=== PATIENT | male | born 1995 | race Caucasian/White ===

== ENCOUNTER 2018-04-05 22:25 | Emergency (ER) | payer MEDICAID ==
[~2018-04-05] VITALS: Ht 180.3 cm; Wt 94.8 kg
[2018-04-05 22:34] VITALS: BP_SYST 160
[2018-04-05] MEDS ORDERED: ONDANSETRON HCL 4 MG/2 ML VIAL IVP ONE (22:45)
[2018-04-05] MEDS ORDERED: NACL 0.9% 1,000 ML IV ONE (22:45)
[2018-04-05] MEDS ORDERED: KETOROLAC TROMETHAMINE 30 MG VIAL IVP ONE (22:45)
[2018-04-05 22:46] LABS: BILIRUBIN,URINE 2+ (NEGATIVE); BLOOD, URINE 1+ (NEGATIVE); COLOR,URINE YELLOW (YELLOW); GLUCOSE,URINE NEGATIVE (NEGATIVE); KETONES,URINE 3+ (NEGATIVE); LEUKOCYTE ESTERASE ,URINE NEGATIVE (NEGATIVE); NITRITE, URINE NEGATIVE (NEGATIVE); PH,URINE 5.5 (5.0-8.0); PROTEIN URINE 1+ (NEGATIVE)
[2018-04-05 22:47] LABS: CLARITY/URINE SLIGHTLY HAZY (CLEAR)
[2018-04-05 23:14] LABS: BACTERIA,URINE FEW /HPF (None Seen); HYALINE CASTS, URINE 0-10 /LPF (None Seen); WBC,URINE 0-3 /HPF (0-3)
[2018-04-05 23:21] LABS: BASOPHILS # (AUTO) 0.3 K/uL (0.0-0.2); BASOPHILS % (AUTO) 1.8 % (0.0-2.0); EOSINOPHILS # (AUTO) 0.1 K/uL (0.0-0.4); EOSINOPHILS % (AUTO) 0.3 % (0.0-4.0); HEMATOCRIT 50.6 % (36-54); HEMOGLOBIN 17.7 g/dL (14.0-18.0); LYMPHOCYTES # (AUTO) 0.7 K/uL (1.0-5.5); LYMPHOCYTES % (AUTO) 4.3 % (20.5-51.5); MEAN CORPUSCULAR HEMOGLOBIN 30 pg (27-31); MEAN CORPUSCULAR HGB CONC 35 % (32-36); MEAN CORPUSCULAR VOLUME 85 fL (79.0-98.0); MONOCYTES # (AUTO) 0.5 K/uL (0.0-1.0); NEUTROPHILS # (AUTO) 15.2 K/uL (1.8-7.7); NEUTROPHILS % (AUTO) 90.6 % (40.0-70.0); PLATELET COUNT (AUTO) 222 K/uL (130-430); RED BLOOD CELL COUNT(AUTO) 5.93 MIL/uL (4.2-6.2); WHITE BLOOD COUNT (AUTO) 16.8 K/uL (4.8-10.8)
[2018-04-05 23:26] LABS: CALCIUM 9.7 mg/dL (8.4-11.0); CREATININE 0.87 mg/dL (0.55-1.30); POTASSIUM 3.7 mmol/L (3.5-5.1)
[2018-04-05 23:30] LABS: ALBUMIN 4.4 g/dL (3.4-4.8); TOTAL BILIRUBIN 0.9 mg/dL (0.0-1.0)
[2018-04-06] MEDS ORDERED: PANTOPRAZOLE SODIUM 40 MG/VIAL (PROTONIX) IVP ONE
[2018-04-06 00:30] VITALS: BP_SYST 133
== END 2018-04-06 00:30 | disposition home or self-care (01) ==
LOC: SED 22:25
DX: K52.9 Noninfective gastroenteritis and colitis, unspecified (principal); R03.0 Elevated blood-pressure reading, without diagnosis of hypertension; Z87.19 Personal history of other diseases of the digestive system
CPT/HCPCS: 36415; 74176; 80053; 81000; 83690; 85025; 96361; 96374; 96375; 99284; C9113; J1885; J2405; J7030; 99283

== ENCOUNTER 2018-07-28 20:51 | Emergency (ER) | payer SELFPAY ==
[~2018-07-28] VITALS: Ht 180.3 cm; Wt 99.8 kg
[2018-07-28 20:57] VITALS: BP_SYST 134
[2018-07-28 23:15] VITALS: BP_SYST 130
== END 2018-07-28 23:15 | disposition home or self-care (01) ==
LOC: SED 20:51
DX: J02.8 Acute pharyngitis due to other specified organisms (principal); B97.89 Other viral agents as the cause of diseases classified elsewhere
CPT/HCPCS: 71045; 99283

== ENCOUNTER 2018-08-14 22:14 | Emergency (ER) | payer SELFPAY ==
[~2018-08-14] VITALS: Ht 180.3 cm; Wt 95.3 kg
[2018-08-14 22:54] VITALS: BP_SYST 150
[2018-08-15] MEDS ORDERED: IBUPROFEN 400 MG TABLET PO ONE
[2018-08-15 00:47] VITALS: BP_SYST 150
== END 2018-08-15 00:47 | disposition home or self-care (01) ==
LOC: SED 22:14
DX: K08.89 Other specified disorders of teeth and supporting structures (principal); R03.0 Elevated blood-pressure reading, without diagnosis of hypertension
CPT/HCPCS: 99282

== ENCOUNTER 2020-08-17 17:35 | Emergency (ER) | payer MEDICAID ==
[~2020-08-17] VITALS: Ht 177.8 cm; Wt 102.5 kg
[2020-08-17 17:42] VITALS: BP_SYST 135
[2020-08-17] MEDS ORDERED: P-EPHED SUL/LORATADINE TAB.SR.12H PO ONE ×2 (18:00→18:03)
[2020-08-17] MEDS ORDERED: ASPIRIN 81 MG TAB.CHEW PO ONE (18:00)
[2020-08-17 18:31] LABS: BASOPHILS % (AUTO) 0.3 % (0.0-2.0); EOSINOPHILS # (AUTO) 0.2 K/uL (0.0-0.4); EOSINOPHILS % (AUTO) 2.2 % (0.0-4.0); HEMATOCRIT 45.7 % (36-54); HEMOGLOBIN 15.8 g/dL (14.0-18.0); LYMPHOCYTES # (AUTO) 2.5 K/uL (1.0-5.5); MEAN CORPUSCULAR HEMOGLOBIN 30 pg (27-31); MEAN CORPUSCULAR HGB CONC 35 % (32-36); MEAN CORPUSCULAR VOLUME 86 fL (79.0-98.0); MONOCYTES # (AUTO) 0.5 K/uL (0.0-1.0); MONOCYTES % (AUTO) 6.4 % (1.7-9.3); NEUTROPHILS # (AUTO) 4.6 K/uL (1.8-7.7); NEUTROPHILS % (AUTO) 59.1 % (40.0-70.0); PLATELET COUNT (AUTO) 184 K/uL (130-430); RED BLOOD CELL COUNT(AUTO) 5.31 MIL/uL (4.2-6.2); RED CELL DISTRIBUTION WIDTH 13.3 % (9.0-15.0); WHITE BLOOD COUNT (AUTO) 7.7 K/uL (4.8-10.8)
[2020-08-17 18:42] LABS: CALCIUM 8.9 mg/dL (8.4-11.0); CREATININE 0.9 mg/dL (0.55-1.30); POTASSIUM 3.6 mmol/L (3.5-5.1)
[2020-08-17 18:47] LABS: ALBUMIN 4.1 g/dL (3.4-4.8); TOTAL BILIRUBIN 0.4 mg/dL (0.0-1.0)
[2020-08-17 20:05] VITALS: BP_SYST 118
== END 2020-08-17 20:05 | disposition home or self-care (01) ==
LOC: SED 17:35
DX: R07.2 Precordial pain (principal); R42 Dizziness and giddiness
CPT/HCPCS: 36415; 71045; 80053; 83880; 84484; 85025; 85379; 93005; 99285

== ENCOUNTER 2021-02-08 15:38 | Emergency (ER) | payer MEDICAID ==
[~2021-02-08] VITALS: Ht 180.3 cm; Wt 99.8 kg
[2021-02-08 16:10] VITALS: BP_SYST 150
--- NOTE | 2021-02-08 20:50 | NUR ---
Patient called 3x, no answer. Patient left without being seen. No further treatment provided. ER MD aware
== END 2021-02-08 20:50 | disposition left against medical advice (07) ==
LOC: SED 15:38
DX: M79.675 Pain in left toe(s) (principal); Z53.21 Procedure and treatment not carried out due to patient leaving prior to being seen by health care provider

== ENCOUNTER 2021-09-28 13:21 | Emergency (ER) | payer MEDICAID ==
[~2021-09-28] VITALS: Ht 180.3 cm; Wt 111.1 kg
[2021-09-28 13:30] VITALS: BP_SYST 129
--- NOTE | 2021-09-28 14:15 | NUR ---
Patient to ER bed 3 to gown for evaluation. Side rails up. Report given to ROMI ZAPATA.
--- NOTE | 2021-09-28 14:16 | NUR ---
ER DR. ELAM EXAMINING PT
--- NOTE | 2021-09-28 14:20 | NUR ---
PT CAME IN FROM HOME C/O RUQ ABD PAIN STARTING LAST NIGHT, DENIES N/V/D/. PT IS AMBULATORY, AAOX4,VSS
[2021-09-28 14:26] LABS: BILIRUBIN,URINE NEGATIVE (NEGATIVE); BLOOD, URINE NEGATIVE (NEGATIVE); CLARITY/URINE CLEAR (CLEAR); COLOR,URINE YELLOW (YELLOW); GLUCOSE,URINE NEGATIVE (NEGATIVE); KETONES,URINE NEGATIVE (NEGATIVE); LEUKOCYTE ESTERASE ,URINE NEGATIVE (NEGATIVE); NITRITE, URINE NEGATIVE (NEGATIVE); PH,URINE 5.5 (5.0-8.0); PROTEIN URINE NEGATIVE (NEGATIVE); UROBILINOGEN,URINE 0.2 (0.2-1.0)
--- NOTE | 2021-09-28 14:47 | NUR ---
LAB AT THE BEDSIDE FOR BLOOD DRAW
[2021-09-28 15:24] LABS: BASOPHILS % (AUTO) 0.3 % (0.0-2.0); EOSINOPHILS # (AUTO) 0.1 K/uL (0.0-0.4); EOSINOPHILS % (AUTO) 1.1 % (0.0-4.0); HEMATOCRIT 44.9 % (36-54); HEMOGLOBIN 15.4 g/dL (14.0-18.0); LYMPHOCYTES # (AUTO) 2.2 K/uL (1.0-5.5); LYMPHOCYTES % (AUTO) 20.7 % (20.5-51.5); MEAN CORPUSCULAR HEMOGLOBIN 29 pg (27-31); MEAN CORPUSCULAR HGB CONC 34 % (32-36); MEAN CORPUSCULAR VOLUME 84 fL (79.0-98.0); MONOCYTES # (AUTO) 0.5 K/uL (0.0-1.0); MONOCYTES % (AUTO) 4.9 % (1.7-9.3); NEUTROPHILS # (AUTO) 7.8 K/uL (1.8-7.7); PLATELET COUNT (AUTO) 171 K/uL (130-430); RED BLOOD CELL COUNT(AUTO) 5.33 MIL/uL (4.2-6.2); WHITE BLOOD COUNT (AUTO) 10.7 K/uL (4.8-10.8)
[2021-09-28 15:35] LABS: ANION GAP 6 (5-15); CALCIUM 8.9 mg/dL (8.4-11.0); CHLORIDE 101 mmol/L (98-107); CREATININE 0.82 mg/dL (0.55-1.30); GLUCOSE 102 mg/dL (70-99); POTASSIUM 3.8 mmol/L (3.5-5.1); SODIUM SERUM 136 mmol/L (136-145); UREA NITROGEN, BLOOD 7 mg/dL (8-21)
[2021-09-28 15:36] LABS: GFR AFRICAN AMERICAN 146 mL/min (>90)
[2021-09-28 15:40] LABS: ALANINE AMINOTRANSFERASE 53 U/L (12-78); AMYLASE 79 U/L (0-100); ASPARTATE AMINOTRANSFERASE 20 U/L (10-37); C-REACTIVE PROTEIN QUANT < 0.2 mg/dL (0-0.5); TOTAL BILIRUBIN 0.5 mg/dL (0.0-1.0)
[2021-09-28 15:44] LABS: LIPASE 393 U/L (73-393)
[2021-09-28] MEDS ORDERED: IBUP-1971 PO (15:53)
[2021-09-28] MEDS ORDERED: TRAM50TA2 PO (15:53)
[2021-09-28 16:10] VITALS: BP_SYST 129
--- NOTE | 2021-09-28 16:10 | NUR ---
Patient given written and verbal discharge instructions and verbalizes understanding. ER MD discussed with patient the results and treatment provided. Patient in stable condition. ID arm band removed. Rx of IBUPROFEN AND TRAMADOL given. Patient educated on pain management and to follow up with PMD. Pain Scale 0/10. Opportunity for questions provided and answered. Medication side effect fact sheet provided.
== END 2021-09-28 16:10 | disposition home or self-care (01) ==
LOC: SED 13:21
DX: R10.11 Right upper quadrant pain (principal); R10.31 Right lower quadrant pain
CPT/HCPCS: 36415; 76376; 80053; 81003; 82150; 83690; 85025; 86140; 99284

== ENCOUNTER 2023-03-22 21:16 | Emergency (ER) | payer MEDICAID ==
[~2023-03-22] VITALS: Ht 180.3 cm; Wt 109.8 kg
[~2023-03-22 21:16] MED LIST: IBUP-1971 PO; TRAM50TA2 PO
[2023-03-22 21:20] VITALS: BP_SYST 147; PULSE 77; RESP 20; TEMP 98.2; O2SAT 99
[2023-03-22] MEDS ORDERED: ZAN4 PO (22:17)
[2023-03-22 22:25] VITALS: BP_SYST 147; PULSE 77; RESP 20; TEMP 98.2; O2SAT 99
== END 2023-03-22 22:54 | disposition home or self-care (01) ==
LOC: SED 21:16
DX: M79.10 Myalgia, unspecified site (principal); R20.2 Paresthesia of skin; Z88.0 Allergy status to penicillin; Z79.899 Other long term (current) drug therapy
CPT/HCPCS: 99283